=== PATIENT | male | born 1955 | race Caucasian/White ===

== ENCOUNTER → 2018-06-26 | Outpatient (CLI) | payer OTHER ==
[~2018-06-26] MED LIST: ALL300 PO; ASP325 PO; ASPI-1471 PO; CAR3.125 PO; CARV12.578 PO; CLO75 PO; ESOM20CA31 PO; ESOM40CA42 PO; EVOL140S IJ; EZE10 PO; GINK60TA6 PO; LOSA25TA47 PO; METH-543 PO; METH4TAB66 PO; METO-259 PO; MILK THISTLE140 M1 PO; MILK1CAP3 PO; NIAC100040 PO; NITR0.4T3 SL; NITR1PAT8 TD; NYST15CR32 TP; OMEG-11 PO; OMEG-96 PO; OXYC-857 PO; OXYC-865 PO; PER PO; PRAS10TA PO; PRAS50CA PO; TRILI135PT PO; VALS160T20 PO
[2018-06-26 11:04] LABS: PLATELET COUNT, AUTOMATED 172 K/uL (150-450)
[2018-06-26 11:18] LABS: LDL CHOLESTEROL 117 mg/dl
--- NOTE | 2018-06-26 13:59 | RADIOLOGY IMAGING REPORT ---
FACILITY: [facility] - [place] PATIENT NAME: David Gonzalez : 1955 MR: [id number] V: [id number] EXAM DATE: ORDERING PHYSICIAN: GUILLERMO MERIDA TECHNOLOGIST: Location: [facility] Patient: David Gonzalez : 1955 Visit/Account:[id number] Date of Sevice: 06/26/2018 Exam type: HIP RIGHT History: Right hip pain x1 year, worsening in past couple weeks after long flight to [place] Comparison: None. Findings: There are mild degenerative changes of both hip joints.. No evidence of acute fracture-dislocation i nvolving the right hip. Dense vascular calcifications are seen in the right inguinal region. Incide ntally noted are postsurgical changes from posterior lumbar interbody fusion at L5-S1 IMPRESSION: 1. Mild degenerative changes of both hip joints Dense vascular calcifications in the right inguinal region Report Dictated By: Tiffanie Pathak MD at 06/26/2018 1:51 PM Report E-Signed By: Tiffanie Pathak MD at 06/26/2018 1:55 PM WSN:[id number]
== END ==
LOC: LAB 10:39
PROVIDERS: ATTEND Internal Medicine
DX: M25.559 Pain in unspecified hip (principal)
CPT/HCPCS: 36415; 82040; 82247; 82310; 82374; 82435; 82465; 82565; 82607; 82746; 82947; 83036; 83718; 84075; 84132; 84153; 84155; 84295; 84443; 84450; 84460; 84478; 84520; 85025

== ENCOUNTER → 2018-07-01 | Outpatient (CLI) | payer OTHER ==
--- NOTE | 2018-07-01 10:05 | RADIOLOGY IMAGING REPORT ---
FACILITY: [facility] - [place] PATIENT NAME: David Gonzalez : 1955 MR: [id number] V: [id number] EXAM DATE: ORDERING PHYSICIAN: GUILLERMO MERIDA TECHNOLOGIST: Location: [facility] Patient: David Gonzalez : 1955 Visit/Account:[id number] Date of Sevice: 07/01/2018 LIVER HISTORY: Elevated liver enzymes COMPARISON: MRCP February 18, [address] abdomen pelvis February 02, 2015 FINDINGS: Gallbladder: Unremarkable; no stones or sludge. Liver: Liver is mildly enlarged measuring 18 cm in length. There is increased echogenicity throughou t liver which can be seen with fatty infiltration other infiltrative process Common duct: Normal, 5.8 mm diameter. Pancreas: Pancreas appears echogenic although discrete mass is not identified Right kidney: There Is a 2.2 cm inferior pole right renal cyst Upper abdominal aorta and IVC: Patent. Ascites: None visualized. IMPRESSION: Mild hepatomegaly with increased echogenicity throughout the liver which can be seen with fatty infil tration other infiltrative process Report Dictated By: Tiffanie Pathak MD at 07/01/2018 9:59 AM Report E-Signed By: Tiffanie Pathak MD at 07/01/2018 10:02 AM WSN:[email or web address]
== END ==
LOC: US 00:19
PROVIDERS: ATTEND Internal Medicine
DX: K76.0 Fatty (change of) liver, not elsewhere classified (principal); R16.0 Hepatomegaly, not elsewhere classified
CPT/HCPCS: 76705

== ENCOUNTER → 2018-07-11 | Outpatient (CLI) | payer OTHER ==
--- NOTE | 2018-07-12 14:39 | RADIOLOGY IMAGING REPORT ---
FACILITY: [facility] [place] PATIENT NAME: David Gonzalez : 1955 MR: [id number] V: [id number] EXAM DATE: ORDERING PHYSICIAN: ALEX LAINEZ TECHNOLOGIST: Location: [facility] [place] Patient: David Gonzalez : 1955 Visit/Account:[id number] Date of Sevice: 07/11/2018 Technique: ANKLE BRACHIAL INDICES HISTORY: [place] Comparison studies: None FINDINGS: Ankle brachial indices were obtained: Brachial artery Right 100 mmHg Left 111 mmHg Right lower extremity: Dorsalis pedis 123 mmHg Posterior tibial artery 117 mmHg Ankle brachial index 1.1 Left lower extremity: Dorsalis pedis 81 mmHg Posterior tibial artery 102 mmHg Ankle brachial index 0.92 IMPRESSION: 1. Normal ankle brachial indices as above Report Dictated By: Kamran Pyle DO at 07/12/2018 2:21 PM Report E-Signed By: Kamran Pyle DO at 07/12/2018 2:34 PM WSN:[id number]
== END ==
LOC: US 11:12
PROVIDERS: ATTEND Surgery
DX: I70.213 Atherosclerosis of native arteries of extremities with intermittent claudication, bilateral legs (principal)
CPT/HCPCS: 93922

== ENCOUNTER → 2018-08-15 | Outpatient (CLI) | payer OTHER | LOC: LAB 12:01 | PROVIDERS: ATTEND Internal Medicine | DX: G62.9 Polyneuropathy, unspecified (principal) ==

== ENCOUNTER → 2018-08-22 | Outpatient (CLI) | payer OTHER ==
[~2018-08-22] MED LIST changes: +REGADENOSON 0.4 MG/5 ML SYR ONE
--- NOTE | 2018-08-22 15:01 | RT STRESS TEST REPORT ---
FACILITY: [facility] PATIENT NAME: WILMER BILL : [id number] MR: [id number] V: [id number] EXAM DATE: ORDERING PHYSICIAN: ASHWINI REZA TECHNOLOGIST: [employer] Time: 2018-08-22 14:38:42 Total Exercise Time: 00:01:00 Test Indications: CAD Medications: SEE NUCLEAR MED SHEET Protocol: LEXISCAN Max HR: 092 BPM 58% of Pred: 158 BPM Max BP: 112/074 mmHG Max Work Load: 1.0 METS Confirmed by DARLENE HOLLIDAY ([id number]) on 08/22/2018 3:01:20 PM Referred By: Overread By: DARLENE HOLLIDAY
--- NOTE | 2018-08-23 11:02 | RADIOLOGY IMAGING REPORT ---
FACILITY: [facility] - [place] PATIENT NAME: David Gonzalez : 1955 MR: [id number] V: [id number] EXAM DATE: ORDERING PHYSICIAN: ASHWINI REZA TECHNOLOGIST: Location: [facility] Patient: David Gonzalez : 1955 Visit/Account:[id number] Date of Sevice: 08/22/2018 EXAMINATION: Single isotope SPECT imaging with regadenoson infusion and gated SPECT imaging. DATE OF EXAMINATION: 08/22/2018. DATE OF INTERPRETATION: 08/23/2018. REQUESTING PHYSICIAN: ASHWINI REZA. INDICATION: The patient is a 63-year-old male evaluated for CAD. PROCEDURE: After informed consent the patient received an intravenous injection of 11.7 mCi of Tc-99 m sestamibi followed at an appropriate time interval by rest imaging. The patient then subsequently received an intravenous infusion of 0.4 mg of regadenoson per protocol without complication. Resting heart rate was 68 bpm with a peak heart rate of 92 bpm. Blood pressure at rest was 112 / 74 and fol lowing infusion was 112 / 74. Baseline EKG demonstrates normal sinus rhythm, right bundle branch blo ck, frequent PVCs. There were no new EKG changes of ischemia following infusion. Symptoms were nons pecific. The patient then received an intravenous injection of 29.6 mCi of Tc-99m sestamibi followed by stress imaging. RAW DATA: Examination of the summed raw data revealed a good quality study. MYOCARDIAL PERFUSION: The tomographic images demonstrate severe, largest inferolateral defect consis tent with prior left circumflex infarct. There is small area of janae-infarct ischemia involving the a pex and lateral apical wall. GATED IMAGES: The gated images demonstrate severely decreased ejection fraction 26%. IMPRESSION: 1. Good quality study 2. Abnormal myocardial perfusion scan. Findings suggestive of prior left circumflex infarct with mil d janae-infarct ischemia involving the apex and lateral apical wall. 3. Severely reduced LV systolic function; LVEF 26%. 4. Based on the results of this exam, the patient appears to be at high risk for future cardiovascula r events given extent of myocardium affected, low EF and area of reversibility seen.. Report Dictated By: Frederick Colin at 08/23/2018 10:51 AM Report E-Signed By: Frederick Colin at 08/23/2018 10:59 AM WSN:[id number]
== END ==
LOC: NUC 06:51
PROVIDERS: ATTEND Internal Medicine Cardiovascular Disease
DX: I25.10 Atherosclerotic heart disease of native coronary artery without angina pectoris (principal)
CPT/HCPCS: 78452; 93017; A9500; J2785

== ENCOUNTER → 2018-10-31 | Outpatient (CLI) | payer OTHER ==
[~2018-10-31] MED LIST changes: +GADOBENATE 529MG/1ML 15ML VIAL IVP ONE; -REGADENOSON 0.4 MG/5 ML SYR ONE
--- NOTE | 2018-10-31 12:48 | RADIOLOGY IMAGING REPORT ---
FACILITY: [facility] PATIENT NAME: David Gonzalez : 1955 MR: [id number] V: [id number] EXAM DATE: ORDERING PHYSICIAN: VERONICA DRAKE TECHNOLOGIST: Location: [facility] [place] Patient: David Gonzalez : 1955 Visit/Account:[id number] Date of Sevice: 10/31/2018 EXAMINATION: MR SPINE CERVICAL W/ & W/O CON INDICATION: Pain COMPARISON: CT December 14, 2016 TECHNIQUE: Multiplane MR imaging was performed through the cervical spine without and with contrast. 15 ml multihance injected. FINDINGS: Vertebral bodies and posterior elements: Normal Cord signal: Normal Marrow signal: Minimal enhancing degenerative marrow edema surrounds multiple disc spaces. Prevertebral and paraspinal soft tissues: Normal Enhancement: Enhancing posterior disc annular fissures at multiple levels. C2-3: Moderate facet arthropathy. No disc protrusion or canal narrowing. Moderate unchanged left fo raminal narrowing. C3-4: Unchanged moderate facet arthropathy. 7 mm anterolisthesis of C3 on C4 has slightly increased, previously measuring 6 mm. No disc protrusion. Severe canal narrowing. Severe unchanged bilateral foraminal narrowing. Moderate unchanged disc space degeneration. C4-5: Moderate unchanged disc space degeneration. Small disc protrusion. Mild canal narrowing. Sev ere left unchanged foraminal narrowing. Moderate to potentially severe right foraminal narrowing has either increased or is better visualized on the comparison CT. The right foramen appears moderately narrowed on the comparison CT. C5-6: Moderate unchanged disc space degeneration. Minimal disc protrusion. Ligamentum flavum thicke jo ann. Mild canal narrowing. Severe right and moderate to severe left foraminal narrowing has not de finitively changed allowing for technique differences. C6-7: Severe unchanged disc space degeneration. Small disc osteophyte complex and ligamentum flavum thickening. Moderate canal narrowing. Severe left and moderate right foraminal narrowing similar to prior. C7-T1: Unchanged slight anterolisthesis of C7 on T1. No disc protrusion or canal narrowing. No defi nitive foraminal narrowing. IMPRESSION: 1. 7 mm anterolisthesis of C3 on C4 has slightly increased secondary to moderate facet arthropathy. 2. Severe C3-4 canal narrowing secondary to the anterolisthesis. 3. Multilevel additional less pronounced canal narrowing, see level by level comments above. 4. Multilevel severe foraminal narrowing, see level by level comments above. Report Dictated By: Martinez Reyes MD at 10/31/2018 12:32 PM Report E-Signed By: Martinez Reyes MD at 10/31/2018 12:43 PM WSN:[id number]
--- NOTE | 2018-10-31 12:58 | RADIOLOGY IMAGING REPORT ---
FACILITY: [facility] - [place] PATIENT NAME: David Gonzalez : 1955 MR: [id number] V: [id number] EXAM DATE: ORDERING PHYSICIAN: VERONICA DRAKE TECHNOLOGIST: Location: [facility] Patient: David Gonzalez : 1955 Visit/Account:[id number] Date of Sevice: 10/31/2018 EXAMINATION: MR SPINE THORACIC W & W/O CON INDICATION: Back pain COMPARISON: None available TECHNIQUE: Multiplane MR imaging was performed through the thoracic spine without and with iv contras t. 15 multihance injected uneventfully. FINDINGS: Vertebral bodies and posterior elements: Mild chronic T9 wedge compression deformity. Cord signal: Normal Marrow signal: Degenerative marrow edema surrounds the T5-6 and T9-T10 disc spaces. Alignment: Normal. Disc spaces: Moderate T5-6 and T9-T10 disc space degeneration. Mild T10-11 disc space degeneration. Small left posterior T6-7 disc protrusion abuts the anterior aspect of the cord with resultant slight cord deformity. This disc protrusion otherwise results in no significant canal narrowing. Small ce ntral T8-9 disc protrusion abuts the anterior cord with resultant slight cord deformity. This disc p rotrusion otherwise results in no significant canal narrowing. Multilevel additional small disc prot rusions result in no significant canal narrowing. Canal narrowing: No canal narrowing. Prevertebral and paraspinal soft tissues: Normal Foramen: Mild to moderate bilateral T9-10 foraminal narrowing. Mild to moderate right and moderate l eft T10-11 foraminal narrowing. Mild left T11-12 foraminal narrowing. IMPRESSION: 1. Moderate C5-6 and T9-10 disc space degeneration. 2. Mild chronic T9 wedge compression deformity. 3. Small disc protrusions at T6-7 and T8-9 abut the anterior cord with resultant slight cord deformi ties. These disc protrusions otherwise result in no significant canal narrowing. 4. Multilevel additional small disc protrusions result in no canal narrowing. 5. T9-10 through T11-12 foraminal narrowing, see comments above. Report Dictated By: Martinez Reyes MD at 10/31/2018 12:44 PM Report E-Signed By: Martinez Reyes MD at 10/31/2018 12:53 PM WSN:[id number]
== END ==
LOC: MRI 03:11
PROVIDERS: ATTEND Psychiatry & Neurology Neurology
DX: M47.892 Other spondylosis, cervical region (principal); M47.894 Other spondylosis, thoracic region
CPT/HCPCS: 72156; 72157; A9577

== ENCOUNTER → 2019-01-06 | Outpatient (CLI) | payer OTHER ==
[~2019-01-06] MED LIST changes: -GADOBENATE 529MG/1ML 15ML VIAL IVP ONE
== END ==
LOC: US 01:17
PROVIDERS: ATTEND Internal Medicine Cardiovascular Disease
DX: I34.0 Nonrheumatic mitral (valve) insufficiency (principal); I51.7 Cardiomegaly
CPT/HCPCS: 93306

== ENCOUNTER 2019-01-21 06:25 | Emergency (ER) | payer OTHER ==
[2019-01-21] MEDS ORDERED: fentaNYL CITR 100 MCG/2 ML AMP IVP ONE (06:40)
[2019-01-21] MEDS ORDERED: ONDANSETRON 4 MG/2 ML VIAL IVP ONE (06:40)
[2019-01-21 06:49] LABS: PLATELET COUNT, AUTOMATED 128 K/uL (150-450)
[2019-01-21 06:55] LABS: INR 0.98
--- NOTE | 2019-01-21 07:10 | RADIOLOGY IMAGING REPORT ---
[facility] PATIENT NAME: David Gonzalez : 1955 MR: [id number] V: [id number] EXAM DATE: ORDERING PHYSICIAN: JAMILAH ABREU TECHNOLOGIST: Location: [facility] [place] Patient: David Gonzalez : 1955 Visit/Account:[id number] Date of Sevice: 01/21/2019 AP CHEST 01/21/2019 6:50 AM. INDICATION: Chest pain. COMPARISON: 02/24/2017 . FINDINGS: Lungs are well-expanded. There is no consolidation. No pleural effusion or pneumothorax. Heart size i s upper limit normal. IMPRESSION: No acute abnormality or significant change. Report Dictated By: Michael Cornejo MD at 01/21/2019 7:05 AM Report E-Signed By: Michael Cornejo MD at 01/21/2019 7:06 AM WSN:[id number]
--- NOTE | 2019-01-21 07:52 | ER Report ---
History and Physical Time Seen By MD: 07:00 Hx. of Stated Complaint: 08/18 LEG PAIN FOR THE PAST FEW DAYS; STATE THAT IS IS IN BOTH LEGS ARE PAINFUL BUT TODAY THE RIGHT LEG IS HURTING WORSE HPI/ROS CHIEF COMPLAINT: Bilateral leg pain HISTORY OF PRESENT ILLNESS: Patient endorsed to me by Dr. Quezada 63-year-old male long history of chronic back issues comes in with bilateral leg pain right greater than left denies any claudication numbness bladder bowel issues no cauda equina type symptoms no numbness of subtle paresthesias. Patient denies fall or trauma. Patient is a long history of alcohol abuse as a recent stress and echocardiogram done. Patient states for the last couple weeks she's been noticing worsening pain both with ambulation without and came here for evaluation. Patient has no additional complaints at this time. REVIEW OF SYSTEMS: Respiratory: No cough, no dyspnea. Cardiovascular: No chest pain, no palpitations. Gastrointestinal: No vomiting, no abdominal pain. Musculoskeletal: Has back pain Remainder of the 14 system rev: Yes Allergies: Coded Allergies: allopurinol (Verified Allergy, Intermediate, 02/24/17) Iplmwno-Etf-Cfy Reductase Inhibitor (Verified Allergy, Unknown, 02/24/17) amoxicillin (Verified Adverse Reaction, Intermediate, 02/24/17) HEPATITIS clavulanic acid (Verified Adverse Reaction, Intermediate, 02/24/17) HEPATITIS Home Meds Active Scripts Prasugrel Hcl (EFFIENT) 10 Mg Tablet, 10 MG PO DAILY, #90 TAB 1 Refill Prov:GUILLERMO MERIDA MD 11/04/18 Esomeprazole Magnesium (NEXIUM) 20 Mg Capsule.dr, 1 CAP PO QDAY, #90 CAP 3 Refills Prov:GUILLERMO MERIDA MD 08/25/18 Reported Medications Nitroglycerin (NITROGLYCERIN) 0.4 Mg Tab.subl, 0.4 MG SL Q5MIN, TAB 08/22/17 Carvedilol (CARVEDILOL) 12.5 Mg Tablet, 12.5 MG PO BID, TAB 08/22/17 Milk Thistle Fruit Extract (MILK THISTLE) Unknown Strength Capsule, PO, CAPSULE 08/22/17 Losartan Potassium (COZAAR) 25 Mg Tablet, 25 MG PO QDAY 08/22/17 Evolocumab (Repatha Syringe) 140 Mg/Ml Syringe, 140 MG IJ Q2WK 08/22/17 [place]-3 Fatty Acids/Fish Oil (OMEGA 3 1,000 MG SOFTGEL) Unknown Strength Capsule, PO QDAY, CAPSULE 07/15/17 Aspirin (ASPIR 81) 81 Mg Tablet., 1 TAB PO QDAY, TAB 07/15/17 Reviewed Nurses Notes: Yes Old Medical Records Reviewed: Yes Hx Smoking: Yes (1 ppd) Smoking Status: Current: Every Day Smoker Hx Substance Use Disorder: No Hx Alcohol Use: Yes (EVERY NIGHT 2-3 DRINKS) Constitutional Vital Sign - Last 24 Hours 01/21/19 01/21/19 06:27 07:12 Temp 99.7 Pulse 97 Resp 17 B/P (MAP) 118/80 Pulse Ox 93 O2 Delivery Room Air O2 Flow Rate 1.5 Physical Exam Physical exam performed by Dr. Quezada Medical Decision Making Data Points Result Diagram: 01/21/1962501/21/19625 Laboratory Hematology Test 01/21/19 06:26 Red Blood Count 4.71 M/uL (4.00-5.60) Mean Corpuscular Volume 101.6 fL (80.0-96.0) Mean Corpuscular Hemoglobin 34.6 pg (26.0-33.0) Mean Corpuscular Hemoglobin Concent 34.1 g/dL (32.0-36.0) Red Cell Distribution Width 13.8 % (11.5-14.5) Mean Platelet Volume 10.3 fL (7.2-11.1) Neutrophils (%) (Auto) 60.6 % (39.4-72.5) Lymphocytes (%) (Auto) 22.4 % (17.6-49.6) Monocytes (%) (Auto) 16.5 % (4.1-12.4) Eosinophils (%) (Auto) 0.1 % (0.4-6.7) Basophils (%) (Auto) 0.4 % (0.3-1.4) Nucleated RBC Relative Count (auto) 0.0 /100WBC Neutrophils # (Auto) 8.3 K/uL (2.0-7.4) Lymphocytes # (Auto) 3.1 K/uL (1.3-3.6) Monocytes # (Auto) 2.3 K/uL (0.3-1.0) Eosinophils # (Auto) 0.0 K/uL (0.0-0.5) Basophils # (Auto) 0.1 K/uL (0.0-0.1) Nucleated RBC Absolute Count (auto) 0.00 K/uL Erythrocyte Sedimentation Rate 48 mm/HOUR (0-20) Prothrombin Time 12.9 seconds (12.0-14.4) Prothromb Time International Ratio 0.98 Activated Partial Thromboplast Time 32 seconds (23-35) D-Dimer Quantitative (PE/DVT) 2.65 ug/ml (0-0.50) Sodium Level 135 mmol/L (137-145) Potassium Level 4.9 mmol/L (3.5-5.0) Chloride Level 106 mmol/L (98-107) Carbon Dioxide Level 19 mmol/L (22-30) Blood Urea Nitrogen 22 mg/dl (9-21) Creatinine 1.20 mg/dl (0.66-1.25) Glomerular Filtration Rate Calc > 60.0 Random Glucose 122 mg/dl (75-110) Calcium Level 9.8 mg/dl (8.4-10.2) Total Bilirubin 1.7 mg/dl (0.2-1.3) Aspartate Amino Transf (AST/SGOT) 39 U/L (0-35) Alanine Aminotransferase (ALT/SGPT) 50 U/L (0-56) Alkaline Phosphatase 67 U/L (0-126) Troponin I < 0.012 ng/ml B-Type Natriuretic Peptide 273 pg/ml (0-100) Total Protein 8.2 g/dl (6.3-8.2) Albumin 4.4 g/dl (3.5-5.0) Serum Alcohol < 10 mg/dl Chemistry Test 01/21/19 06:26 White Blood Count 13.6 k/uL (4.5-11.0) Red Blood Count 4.71 M/uL (4.00-5.60) Hemoglobin 16.3 g/dL (14.0-18.0) Hematocrit 47.8 % (42.0-52.0) Mean Corpuscular Volume 101.6 fL (80.0-96.0) Mean Corpuscular Hemoglobin 34.6 pg (26.0-33.0) Mean Corpuscular Hemoglobin Concent 34.1 g/dL (32.0-36.0) Red Cell Distribution Width 13.8 % (11.5-14.5) Platelet Count 128 K/uL (150-450) Mean Platelet Volume 10.3 fL (7.2-11.1) Neutrophils (%) (Auto) 60.6 % (39.4-72.5) Lymphocytes (%) (Auto) 22.4 % (17.6-49.6) Monocytes (%) (Auto) 16.5 % (4.1-12.4) Eosinophils (%) (Auto) 0.1 % (0.4-6.7) Basophils (%) (Auto) 0.4 % (0.3-1.4) Nucleated RBC Relative Count (auto) 0.0 /100WBC Neutrophils # (Auto) 8.3 K/uL (2.0-7.4) Lymphocytes # (Auto) 3.1 K/uL (1.3-3.6) Monocytes # (Auto) 2.3 K/uL (0.3-1.0) Eosinophils # (Auto) 0.0 K/uL (0.0-0.5) Basophils # (Auto) 0.1 K/uL (0.0-0.1) Nucleated RBC Absolute Count (auto) 0.00 K/uL Erythrocyte Sedimentation Rate 48 mm/HOUR (0-20) Prothrombin Time 12.9 seconds (12.0-14.4) Prothromb Time International Ratio 0.98 Activated Partial Thromboplast Time 32 seconds (23-35) D-Dimer Quantitative (PE/DVT) 2.65 ug/ml (0-0.50) Glomerular Filtration Rate Calc > 60.0 Calcium Level 9.8 mg/dl (8.4-10.2) Total Bilirubin 1.7 mg/dl (0.2-1.3) Aspartate Amino Transf (AST/SGOT) 39 U/L (0-35) Alanine Aminotransferase (ALT/SGPT) 50 U/L (0-56) Alkaline Phosphatase 67 U/L (0-126) Troponin I < 0.012 ng/ml B-Type Natriuretic Peptide 273 pg/ml (0-100) Total Protein 8.2 g/dl (6.3-8.2) Albumin 4.4 g/dl (3.5-5.0) Serum Alcohol < 10 mg/dl Coagulation Test 01/21/19 06:26 Prothrombin Time 12.9 seconds Prothromb Time International Ratio 0.98 Activated Partial Thromboplast Time 32 seconds D-Dimer Quantitative (PE/DVT) 2.65 ug/ml Toxicology Test 01/21/19 06:26 Serum Alcohol < 10 mg/dl ED Course/Re-evaluation ED Course ED course 7-year-old male signed out to me by Dr. Quezada pending MRI and CT a ngiography CT angiography was negative his MRI does shows multilevel disc degenerative relatively unchanged from baseline which explains his chronic and acute on chronic processes patient be discharged maintain current medication regimen and follow up with primary care for and referral back to neurology for potential surgical intervention there is also the potential of this having an alcoholic neuropathy component to it which is not unreasonable. Decision to Disposition Date: January 21, 2019 Decision to Disposition Time: 08:55 Depart Departure Latest Vital Signs Vital Signs Date Time Temp Pulse Resp B/P (MAP) Pulse Ox O2 Delivery O2 Flow Rate FiO2 01/21/19 07:12 1.5 01/21/19 06:27 99.7 97 17 118/80 93 Room Air Impression: Primary Impression: Degenerative disc disease at L5-S1 level Additional Impression: Degenerative disc disease, lumbar Condition: Improved Disposition: HOME OR SELF-CARE Referrals: GUILLERMO MERIDA MD (PCP) 5 Days Patient Instructions: Degenerative Disc Disease (DC) Problem Qualifiers FRANCY AYON MD January 21, 2019 07:52
--- NOTE | 2019-01-21 07:58 | EKG ---
FACILITY: [facility] PATIENT NAME: WILMER BILL : [id number] MR: [id number] V: [id number] EXAM DATE: ORDERING PHYSICIAN: JAMILAH ABREU TECHNOLOGIST: CATRINA Tirado Reason : CARDIAC Blood Pressure : / mmHG Vent. Rate : 088 BPM Atrial Rate : 088 BPM P-R Int : 168 ms QRS Dur : 152 ms QT Int : 422 ms P-R-T Axes : 038 114 050 degrees QTc Int : 510 ms Sinus rhythm Right bundle branch block Left posterior fascicular block Bifascicular block Inferior infarct (cited on or before 24-FEB-2017) Abnormal ECG When compared with ECG of 24-FEB-2017 10:15, T wave inversion less evident in Anterior leads Confirmed by JONAH MONCADA ([id number]) on 01/21/2019 6:58:47 PM Referred By: BRADY Confirmed By:JONAH MONCADA
[2019-01-21] MEDS ORDERED: IOPAMIDOL 76% 150 ML INFUS BTL 150 ML ONE (08:14)
[2019-01-21] MEDS ORDERED: NS(*) 0.9% 50 ML BAG 50 ML ONE (08:14)
--- NOTE | 2019-01-21 08:41 | RADIOLOGY IMAGING REPORT ---
FACILITY: [facility] PATIENT NAME: David Gonzalez : 1955 MR: [id number] V: [id number] EXAM DATE: ORDERING PHYSICIAN: FRANCY AYON TECHNOLOGIST: Location: Patient: David Gonzalez : 1955 Visit/Account:[id number] Date of Sevice: 01/21/2019 CT CTA CHEST W & W/O CON HISTORY: pain TECHNIQUE: CTA chest with intravenous contrast attention to pulmonary arteries. Sagittal, coronal a nd slab 3D MIP coronal reconstructed images were also created for further evaluation and interpretati on. One of the following dose optimization techniques was utilized in the performance of this exam: Autom ated exposure control; adjustment of the mA and/or kV according to the patient's size; or use of an i terative reconstruction technique. Specific details can be referenced in the facility's radiology CT exam operational policy. CONTRAST: 75 mL Isovue-370. COMPARISON: CT dated December 21, 2016.. FINDINGS: Heart/vessels: Satisfactory opacification of the pulmonary arteries without visualized pulmonary emb olus. Moderate to advanced calcifications within the coronary arteries. Moderate atherosclerosis wi thin the thoracic aorta. Mediastinum: Negative. Lymph nodes: Negative. Lungs/pleura: Background of mild paraseptal emphysematous changes. No pulmonary infiltrate or conso lidation. Mild diffuse bronchial wall thickening. Visualized upper abdomen: Negative. Bones/soft tissues: Stable T9 compression deformity. No acute osseous abnormality. IMPRESSION: 1. No acute findings. Negative for pulmonary embolus. 2. Moderate to advanced calcifications within the coronary arteries. Report Dictated By: Martinez Vragas MD at 01/21/2019 8:31 AM Report E-Signed By: Martinez Vargas MD at 01/21/2019 8:36 AM WSN:[email or web address]
--- NOTE | 2019-01-21 08:49 | RADIOLOGY IMAGING REPORT ---
FACILITY: [facility] PATIENT NAME: David Gonzalez : 1955 MR: [id number] V: [id number] EXAM DATE: ORDERING PHYSICIAN: FRANCY AYON TECHNOLOGIST: Location: [facility] [place] Patient: David Gonzalez : 1955 Visit/Account:[id number] Date of Sevice: 01/21/2019 EXAMINATION: MRI Lumbar spine without intravenous contrast HISTORY: Low back pain. Leg weakness. COMPARISON: Lumbar spine MRI dated 03/17/2018. TECHNIQUE: Multi-planar, multi-sequence lumbar spine MRI was performed without intravenous contrast administration. FINDINGS: Alignment: 9 mm of anterior listhesis of L5 over S1. Vertebral marrow signal: Discogenic bone marrow edema at L3-L4 and L4-L5. Distal thoracic cord: Negative. Conus: negative, terminates at the mid L1 vertebral body. Cauda equina: Fatty filum. Otherwise negative. Paravertebral soft tissues: Negative. Visualized abdominal and pelvic structures: 2.2 cm exophytic cyst extending posteriorly from the righ t kidney. Disc Spaces: Lower thoracic spine: Mild degenerative changes with mild neural foraminal stenosis. L1-2: Negative. L2-3: Minimal disc bulge. No significant stenosis. No significant change. L3-4: Moderate disc height loss with circumferential disc bulge and facet hypertrophy. No significan t spinal canal stenosis. Mild to moderate right and moderate left neural foraminal stenosis. No sig nificant change. L4-5: Moderate to severe disc height loss with circumferential disc bulge, eccentric to the right. B ilateral facet hypertrophy. No significant spinal canal stenosis. Rivv-my-otjzreye bilateral neural foraminal stenosis. No significant change. L5-S1: 9 mm of anterior listhesis. Bilateral pedicle screws. Interbody cage. No significant spinal canal stenosis. Moderate bilateral neural foraminal stenosis. No significant change. IMPRESSION: Multilevel lumbar spondylosis with postsurgical changes at L5-S1. No significant change compared to 03/17/2018. Report Dictated By: Rusty Cruz MD at 01/21/2019 8:29 AM Report E-Signed By: Rusty Cruz MD at 01/21/2019 8:42 AM WSN:[id number]
[2019-01-21 08:59] VITALS: BP 97/71
[2019-01-27] MEDS ORDERED: PREG75CA60 PO (15:43)
[2019-01-27] MEDS ORDERED: SPIR25TA80 PO (15:43)
[2019-01-27] MEDS ORDERED: OXYC5TAB38 PO (15:50)
[2019-02-05] MEDS ORDERED: PREG150C33 PO (15:09)
== END 2019-01-21 08:58 | disposition home or self-care (01) ==
LOC: ER 07:20
DX: M51.37 Other intervertebral disc degeneration, lumbosacral region (principal); M51.36 Other intervertebral disc degeneration, lumbar region; I45.2 Bifascicular block; R07.9 Chest pain, unspecified; I25.10 Atherosclerotic heart disease of native coronary artery without angina pectoris; Z79.82 Long term (current) use of aspirin
CPT/HCPCS: 71045; 71275; 72148; 80320; 83880; 84484; 85025; 85379; 85610; 85651; 85730; 93005; 96374; 96375; 99284; J2405; J3010; J7050; Q9967; 82040; 82247; 82310; 82374; 82435; 82565; 82947; 84075; 84132; 84155; 84295; 84450; 84460; 84520

== ENCOUNTER → 2019-01-21 | Outpatient (CLI) | payer OTHER | LOC: AMB 05:58 | PROVIDERS: ATTEND Nurse Practitioner | DX: M79.605 Pain in left leg (principal); M79.604 Pain in right leg | CPT/HCPCS: A0425; A0427 ==

== ENCOUNTER → 2019-01-28 | Outpatient (CLI) | payer OTHER ==
[~2019-01-28] MED LIST changes: +OXYC5TAB38 PO; +PREG75CA60 PO; +SPIR25TA80 PO
[2019-01-28 09:18] LABS: PLATELET COUNT, AUTOMATED 226 K/uL (150-450)
--- NOTE | 2019-01-28 10:52 | RADIOLOGY IMAGING REPORT ---
FACILITY: [facility] PATIENT NAME: David Gonzalez : 1955 MR: [id number] V: [id number] EXAM DATE: ORDERING PHYSICIAN: GUILLERMO MERIDA TECHNOLOGIST: Location: [facility] Patient: David Gonzalez : 1955 Visit/Account:[id number] Date of Sevice: 01/28/2019 Exam type: US VENOUS LOWER EXT RT History: Right Leg Pain, on anticoagulants Comparison: None. Findings: The right lower extremity veins were imaged including the right common femoral, vein greater saphenou s vein, superficial femoral vein, popliteal vein, anterior tibial vein and peroneal vein revealing no evidence of intraluminal thrombi. The veins were compressible and demonstrated augmentation.Inciden tally noted is a significant amount of plaque in the right popliteal artery. IMPRESSION: 1 No sonographic evidence DVT involving the right lower extremity veins Incidental note of significant plaque in the right popliteal artery Report Dictated By: Tiffanie Pathak MD at 01/28/2019 10:40 AM Report E-Signed By: Tiffanie Pathak MD at 01/28/2019 10:48 AM WSN:[email or web address]
== END ==
LOC: US 07:04
PROVIDERS: ATTEND Internal Medicine
DX: M79.604 Pain in right leg (principal); Z86.79 Personal history of other diseases of the circulatory system; E78.5 Hyperlipidemia, unspecified; I10 Essential (primary) hypertension; G62.9 Polyneuropathy, unspecified
CPT/HCPCS: 36415; 82306; 82607; 82746; 83036; 84443; 85025; 85651; 86038; 86140

== ENCOUNTER → 2019-01-28 | Outpatient (CLI) | payer OTHER ==
[2019-01-28 10:12] LABS: LDL CHOLESTEROL 94 mg/dl
== END ==
LOC: LAB 08:42
PROVIDERS: ATTEND Internal Medicine Cardiovascular Disease
DX: I25.10 Atherosclerotic heart disease of native coronary artery without angina pectoris (principal)
CPT/HCPCS: 36415; 82040; 82247; 82310; 82374; 82435; 82465; 82565; 82947; 83718; 84075; 84132; 84155; 84295; 84450; 84460; 84478; 84520